=== PATIENT | male | born 1930 | race Caucasian/White ===

== ENCOUNTER 2016-09-07 08:31 | Inpatient (IN) ==
--- NOTE | 2016-09-07 09:15 | Emergency Department Note ---
Arrival - Arrival Chief Complaint: Urogenital - Male Stated Complaint: malfunctioning catheter ED Nursing Triage Note: Pt c/o unable to flush العلي cath since 0300 this am. Pt was seen at [facility] ER this am and sent here. Mode of Arrival: Wheelchair Limitations: No Limitations Source: Patient, Family, RN Notes Reviewed Time Seen by Provider: 09/07/16 08:58 - History of Present Illness HPI Narrative: Patient is an 85-year-old white male who has an appointment see Dr. Perdomo on 09/11/2016. The patient has undergone left heart cath that in [facility] on Sunday, 09/04 and has been unable to void afterwards. The patient had an outcast during his time at [facility] but at the time he was discharged home coud-tip العلي catheter was placed which is 16 Azerbaijani. The patient was discharged home Sunday. During the night the patient had intense suprapubic pain. He has no history of voiding around his catheter. He has had some bloody urine however the patient is on Plavix after his cardiac stent. Patient had 1 small clot noted in the ER here at [facility]. The patient was seen prior to his visit here in the ER at [facility] in [place]. The patient was transferred here as [facility] attempted to irrigate his العلي was 20 cc and they were unable to get this to return. Patient has had 600 cc out recorded at [facility] initially and another 400 recorded at [facility] prior to transfer. Patient had 205 cc out upon arrival here in the emergency department. Allergies/Adverse Reactions: Allergies Allergy/AdvReac Type Severity Reaction Status Date / Time Sulfa (Sulfonamide Allergy Unknown/Unable Verified 08/11/14 22:50 Antibiotics) to obtain tamsulosin [From Flomax] Allergy RASH Verified 09/07/16 08:36 Home Medications: Home Medications Medication Instructions Recorded Confirmed Type Alfuzosin [Uroxatral] 10 mg PO QAM 08/11/14 07/10/16 History Aspirin EC Tab 325 mg PO QAM 08/11/14 07/10/16 History Fluticasone 50 Mcg Nasal [place] 1 spray BOTH NARES DAILY PRN 08/11/14 07/10/16 History [Flonase] Sodium Bicarbonate 650 mg PO 0600,1200,1800 08/11/14 07/10/16 History Docusate Sodium Cap [Colace Cap] 100 mg PO QPM PRN 01/28/15 07/10/16 History LORazepam TAB [Ativan Tab] 1 mg PO BEDTIME PRN 01/28/15 07/10/16 History Polyethylene Glycol Powder 17 gm PO BEDTIME PRN 01/28/15 07/10/16 History [Miralax] amLODIPine [Norvasc] 10 mg PO 1200 01/28/15 07/10/16 History Losartan [Cozaar] 50 mg PO QAM 05/24/16 07/10/16 History [place]-3 Fatty Acids [Fish Oil] 300 mg PO QAM 05/24/16 07/10/16 History Atorvastatin [Lipitor] 10 mg PO BEDTIME 05/31/16 07/10/16 History Esomeprazole Magnesium [Nexium] 1 tablet PO DAILY 05/31/16 07/10/16 History Apixaban [Eliquis] 5 mg PO BID #60 tablet 06/07/16 07/10/16 Rx Diltiazem Cd Cap [Cardizem CD] 120 mg PO BID #60 capsule 06/07/16 07/10/16 Rx Ciprofloxacin Tab [Cipro Tab] 500 mg PO Q12HR #20 tablet 07/10/16 Rx HYDROcodone/ACETAMIN 10-325 [D[place]er 1 tablet PO Q6H PRN #20 tablet 07/10/16 Rx 10-325] metroNIDAZOLE [Metronidazole] 500 mg PO TID #30 tablet 07/10/16 Rx Levofloxacin Tab [Levaquin Tab] 500 mg PO DAILY #7 tablet 09/07/16 Rx Phenazopyridine HCl [Pyridium] 200 mg PO TID #30 tablet 09/07/16 Rx Medical,Surgical,& Family Hx - Medical History Cardio: History of: Aneurysm (left iliac artery), CAD (Patient had coronary artery bypass graft 2004), Hypertension Neurology: No history of: Seizures Rheumatology: History of;: Gout Genitourinary: History of: Prostate Problems Gastrointestinal: History of: Diverticulitis/ Diverticulosis (since 2004), GERD Musculoskeletal: History of: Degenerative Disk Disease Other: History of: Miscellaneous Medical Problems (She had difficulty with hyponatremia) No history of: Cancer - Surgical History Cardiac Surgeries: Sugical HX of: Cardiac Surgery (triple bypass in 2004) Thoracic Surgeries: Patient denies;: Organ Transplant HEENT Surgeries: Patient denies: Eye Surgery Abdominal Surgeries: Patient denies: Abdominal Surgery - Family History Family History: Reports;: Family Cancer (grandmother leukemia), Family Hypertension (father) Comment Only: Family Heart Disease (father heart attack) - Social History Smoking Status: Never smoker Exam Vital Signs: Vital Signs Temperature 97.0 F L 09/07/16 08:34 Pulse Rate 94 H 09/07/16 08:34 Respiratory Rate 18 09/07/16 08:34 Blood Pressure 147/50 09/07/16 08:34 O2 Sat by Pulse Oximetry 96 09/07/16 08:34 GENERAL: This is a well-nourished well-developed white male in no apparent distress. VITAL SIGNS: Reviewed HEENT: Head is atraumatic and normocephalic. Pupils are equal round react to light. Extraocular movements are intact. Oropharynx is benign with moist mucous membranes. NECK: Neck is soft and supple without tenderness. There are no masses. There is no lymphadenopathy. LUNGS: Lungs are clear to auscultation. Chest rises symmetrically. There is no chest wall tenderness. CV: Heart is regular rate and rhythm without murmurs rubs or gallops. ABDOMEN: Abdomen is soft, nontender to palpation. There are no abdominal abnormal masses palpated. There is no organomegaly. Bowel sounds are present and active. SKIN: Skin is warm and dry. No rash. EXTREMITIES: Patient has full range of motion without tenderness. There is no pedal edema. Neuro: Awake alert and oriented 4. Cranial nerves II 12 grossly intact. Motor is 5/5 in all extremities both extensors and flexors. Course Course Narrative: 20 Azerbaijani العلي catheter was placed as directed by Dr. Champagne. Patient now has gross hematuria even after irrigation. - Consultations Consultation #1: Discussed with Dr. Montrell Champagne. He desires patient have a 20 Azerbaijani العلي. Time: 09:16 Disposition Clinical Impression: Urinary retention, Status post PCI Case discussed with: patient Disposition: Still a Patient Condition: Stable Additional Instructions: Patient will continue العلي and leg bag until being seen by Dr. Perdomo next Sunday on 09/11. The patient may return to the emergency department any problems prior to that time. Pyridium 200 mg 3 times daily as needed. Patient is to continue Avodart. Prescriptions: Levofloxacin Tab [Levaquin Tab] 500 mg PO DAILY #7 tablet Phenazopyridine HCl [Pyridium] 200 mg PO TID #30 tablet New Prescriptions: Rx's Medication Instructions Recorded Levofloxacin Tab [Levaquin Tab] 500 mg PO DAILY #7 tablet 09/07/16 Phenazopyridine HCl [Pyridium] 200 mg PO TID #30 tablet 09/07/16 Time of Disposition: 09:17
[2016-09-07] MEDS ORDERED: LIDOCAINE 2% VISCOUS 100 ML BOTTLE ONE (09:43)
[2016-09-07 10:34] LABS: Apearance,Urine CLEAR (Clear); Bilirubin,Urine Negative (Negative); Blood, Urine Large mg/dL (Negative); Glucose,Urine (UA) Negative (Negative); Ketones,Urine Negative (Negative); Nitrite,Urine Negative (Negative); Protein,Urine 100 MG/DL; RBC,Urine 25 /HPF (0-4); Urine Color Red (Yellow); Urine Specific Gravity 1.002 (1.001-1.035); Urine Urobilinogen < 2.0 EU/DL (0.2-1.0); WBC,Urine 4 /HPF (0-6)
[2016-09-07 12:24] LABS: Albumin 3.3 G/DL (3.4-5.0); Calcium 8.3 MG/DL (8.5-10.1); Osmolality,Calculated 262.8 MOS/KG (273-304); Potassium 4.4 MMOL/L (3.5-5.1); Total Protein 5.6 G/DL (6.4-8.3)
[2016-09-07] MEDS ORDERED: ONDANSETRON 4 MG/2 ML VIAL IV PRN (13:37)
[2016-09-07] MEDS ORDERED: PROMETHAZINE 25 MG/1 ML VIAL IM PRN (13:37)
[2016-09-07] MEDS ORDERED: ACETAMINOPHEN 325 MG TABLET PO PRN (13:37)
[2016-09-07 14:28] LABS: Basophils % 0.2 % (0.0-0.8); Eosinophils # 0.1 10*3/uL (0.0-0.87); Hematocrit 27.4 VOL% (42.0-52.0); Hemoglobin 9.7 GM/DL (14.0-18.0); Immature Granulocytes % 0.2 %; Immature Granulocytes Absolute 0.01 #; Lymphocytes # 0.4 10*3/uL (1.4-4.0); Lymphocytes % 8.6 % (21.2-54.2); Mean Corpuscular HGB Conc 35.4 GM/DL (32-36); Mean Corpuscular Hemoglobin 31 PG (27-34); Mean Corpuscular Volume 88.1 FL (87-102); Mean Platelet Volume 10.4 FL (9.6-12.0); Monocytes # 0.6 10*3/uL (0.11-0.8); Monocytes % 13.3 % (1.7-12.7); Neutrophils # 3.5 10*3/uL (1.4-7.4); Neutrophils % 74.7 % (38.7-73.9); Platelet Count 65 T/CUMM (130-400); Red Blood Count 3.11 MC/CUMM (3.8-5.5); Red Cell Distribution Width 14.3 % (9.3-17.3); White Blood Count 4.7 T/CUMM (4-12)
[2016-09-07] MEDS ORDERED: MAGNESIUM HYDROXIDE SUSP 30 ML UDCUP PO PRN (15:06)
[2016-09-07 16:20] LABS: Platelet Estimate Decreased
[2016-09-07] MEDS: CLOPIDOGREL 75 MG TABLET PO SCH (17:16)
[2016-09-07] MEDS ORDERED: POLYETHYLENE GLYCOL POWDER 17 GM PACK PO PRN (18:24)
[2016-09-07] MEDS ORDERED: BACLOFEN 10 MG TABLET PO PRN (18:24)
[2016-09-07] MEDS ORDERED: FLUTICASONE 50 MCG NASAL SPRAY 16 GM BOTTLE BOTH NARES PRN (18:24)
--- NOTE | 2016-09-07 18:31 | Urology History & Physical ---
Assessment and Plan - Time spent with patient Time spent with patient: Less than 30 minutes (1) BPH associated with nocturia Status: Acute Current Visit: Yes (2) Gross hematuria Status: Acute Assessment and plan: We will have the nurses irrigate. We will continue his Uroxatrol and Avodart. This is going to unfortunately take quite some time. If he becomes anemic and his blood count is low then he will need a transfusion. Current Visit: Yes 12 point system: reviewed and no additional remarkable complaints except as stated History of Present Illness Chief complaint: Gross hematuria History of present illness: Mr. Arzola is a 85 year old male who had a percutaneous interventional cardiology procedure done Sunday at [facility] [place]. Apparently had a heart valve placed in a stent. He had difficulty voiding had a العلي catheter placed as developed gross hematuria. He was seen in the emergency room and the try to get him clear but he continue to bleed. He has been on Plavix. Because of the stent he can stop the Plavix was admitted. We switched out the 16-20 Malian العلي catheter nurses will have to irrigated. We will hold his aspirin. I am admitting the patient because Dr. Perdomo is out of town. Home Medications Medication Instructions Recorded Confirmed Type Alfuzosin [Uroxatral] 10 mg PO QAM 08/11/14 09/07/16 History Fluticasone 50 Mcg Nasal [place] 1 spray BOTH NARES DAILY PRN 08/11/14 09/07/16 History [Flonase] Sodium Bicarbonate 650 mg PO 0600,1200,1800 08/11/14 09/07/16 History Docusate Sodium Cap [Colace Cap] 100 mg PO QPM PRN 01/28/15 09/07/16 History LORazepam TAB [Ativan Tab] 1 mg PO BEDTIME PRN 01/28/15 09/07/16 History Polyethylene Glycol Powder 17 gm PO BEDTIME PRN 01/28/15 09/07/16 History [Miralax] Losartan [Cozaar] 50 mg PO QAM 05/24/16 09/07/16 History [place]-3 Fatty Acids [Fish Oil] 300 mg PO QAM 05/24/16 09/07/16 History Atorvastatin [Lipitor] 10 mg PO BEDTIME 05/31/16 09/07/16 History Esomeprazole Magnesium [Nexium] 1 tablet PO DAILY 05/31/16 09/07/16 History Aspirin Chew Tab 81 mg PO DAILY 09/07/16 09/07/16 History Baclofen 10 mg PO QPM PRN 09/07/16 09/07/16 History Clopidogrel [Plavix] 75 mg PO QAM 09/07/16 09/07/16 History Diltiazem Cd Cap [Cardizem CD] 120 mg PO QAM 09/07/16 09/07/16 History Diltiazem Tab [Cardizem Tab] 120 mg PO QAM 09/07/16 09/07/16 History Dutasteride [Avodart] 0.5 mg PO QPM 09/07/16 09/07/16 History Allergies Allergy/AdvReac Type Severity Reaction Status Date / Time Sulfa (Sulfonamide Allergy Unknown/Unable Verified 08/11/14 22:50 Antibiotics) to obtain tamsulosin [From Flomax] Allergy RASH Verified 09/07/16 08:36 Medical,Surgical,& Family Hx - Medical History Cardio: History of: Aneurysm (left iliac artery, abdominal aortic aneurysm), Cerebrovascular Disease, CAD (Patient had coronary artery bypass graft 2004), Hypertension, Cardiovascular Problems (recent aortic valve replacement, and stents) Neurology: No history of: Seizures Rheumatology: History of;: Gout Genitourinary: History of: Bladder Problem (العلي inserted 09/06/16), Prostate Problems Gastrointestinal: History of: Diverticulitis/ Diverticulosis (since 2004), GERD Musculoskeletal: History of: Degenerative Disk Disease Other: History of: Miscellaneous Medical Problems (She had difficulty with hyponatremia) No history of: Cancer - Surgical History Cardiac Surgeries: Sugical HX of: Cardiac Surgery (triple bypass in 2004) Thoracic Surgeries: Patient denies;: Organ Transplant HEENT Surgeries: Patient denies: Eye Surgery Abdominal Surgeries: Patient denies: Abdominal Surgery - Family History Family History: Reports;: Family Cancer (grandmother leukemia), Family Hypertension (father) Comment Only: Family Heart Disease (father heart attack) - Social History Smoking Status: Never smoker Frequency of Alcohol Use: None Type of Drug Use: None Exam - Constitutional Vitals: Period Temp Pulse Resp BP Sys/Armendariz Pulse Ox Last 24 Hr 97 F-98.1 F 84-98 16-18 111-147/50-80 93-99 - Respiratory Respiratory exam: Present: clear to auscultation bilaterally - Cardiovascular Cardiovascular exam: Present: regular rate and rhythm, tachycardia - GI/Abdominal GI/Abdominal exam: Present: normal bowel sounds, tenderness (Suprapubic), soft - Genitourinary Genitourinary: scrotum without lesions, cysts, edema or rash, penis with no lesions or discharge, diffusely enlarged prostate without tenderness Results - Labs CBC & BMP: 09/07/16 14:15 09/07/16 11:35
[2016-09-07] MEDS: SODIUM CHLORIDE 0.9% 1,000 ML IV SCH (18:47)
[2016-09-07] MEDS: ATORVASTATIN 10 MG TABLET PO SCH (22:11)
[2016-09-07] MEDS: DILTIAZEM CD 120 MG CAPSULE PO SCH (22:11)
[2016-09-07] MEDS: DUTASTERIDE 0.5 MG CAPSULE PO SCH (22:11)
[2016-09-08] MEDS: SODIUM BICARBONATE 650 MG TABLET PO SCH ×3 (05:37→18:03)
[2016-09-08 06:05] LABS: Basophils % 0.4 % (0.0-0.8); Eosinophils # 0.2 10*3/uL (0.0-0.87); Eosinophils % 3.8 % (0.00-10.9); Hematocrit 28.2 VOL% (42.0-52.0); Hemoglobin 9.8 GM/DL (14.0-18.0); Immature Granulocytes % 0.4 %; Immature Granulocytes Absolute 0.02 #; Lymphocytes # 0.4 10*3/uL (1.4-4.0); Mean Corpuscular HGB Conc 34.8 GM/DL (32-36); Mean Corpuscular Hemoglobin 31 PG (27-34); Mean Corpuscular Volume 89.8 FL (87-102); Monocytes # 0.7 10*3/uL (0.11-0.8); Monocytes % 12.3 % (1.7-12.7); Neutrophils # 4.3 10*3/uL (1.4-7.4); Neutrophils % 76.1 % (38.7-73.9); Red Blood Count 3.14 MC/CUMM (3.8-5.5); Red Cell Distribution Width 14.4 % (9.3-17.3); White Blood Count 5.6 T/CUMM (4-12)
[2016-09-08 06:08] LABS: Platelet Count 70 T/CUMM (130-400)
[2016-09-08 06:32] LABS: Band Neutrophils 1 % (0-10); Calcium 7.8 MG/DL (8.5-10.1); Eosinophils 4 % (0-10); Hypochromasia 1+; Lymphocytes 3 % (20-55); Osmolality,Calculated 265.5 MOS/KG (273-304); Ovalocytes Slight; Platelet Estimate Decreased; Potassium 4.2 MMOL/L (3.5-5.1); Segmented Neutrophils 83 % (50-85); Total Cells Counted 100
[2016-09-08] MEDS ORDERED: SIMETHICONE CHEW 125 MG TABLET PO PRN (07:05)
[2016-09-08] MEDS: SODIUM CHLORIDE 0.9% 1,000 ML IV SCH ×2 (07:24→20:45)
[2016-09-08] MEDS: ALFUZOSIN 10 MG TABLET PO SCH (08:48)
[2016-09-08] MEDS: PANTOPRAZOLE 40 MG TABLET PO SCH (08:48)
[2016-09-08] MEDS: DILTIAZEM CD 120 MG CAPSULE PO SCH ×2 (08:48→20:44)
[2016-09-08] MEDS: OMEGA 3 ACID ETHYL ESTERS 1 GM CAPSULE PO SCH (08:48)
[2016-09-08] MEDS: CLOPIDOGREL 75 MG TABLET PO SCH ×2 (08:48→08:58)
--- NOTE | 2016-09-08 08:48 | EKG Report ---
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
--- NOTE | 2016-09-08 08:49 | Urology Progress Note ---
Assessment and Plan (1) BPH associated with nocturia Status: Acute Current Visit: Yes (2) Gross hematuria Status: Acute Assessment and plan: We will have the nurses irrigate. We will continue his Uroxatrol and Avodart. This is going to unfortunately take quite some time. If he becomes anemic and his blood count is low then he will need a transfusion. Current Visit: Yes Urology - PN: Subj Interval history: Patient had a stable night. His hematuria looks like it is beginning to clear. He is having minimal pain. He is not having any chest pain. His H&H is stable at 9 and 28. So right now I do not feel like we need to transfuse him. His sodium is up to 132. I will leave all his other cardiac meds and blood pressure medicines to Dr. Gottlieb and Dr. Mera. I am off this weekend the on- call neurologist will see him and then Dr. Perdomo should pick him up on Sunday morning. I will transfer his service to Dr. Perdomo service now. I will be available the rest of this morning if need be. Exam - Constitutional Vitals: Period Temp Pulse Resp BP Sys/Armendariz Pulse Ox Last 24 Hr 97 F-98.9 F 82-98 16-20 111-147/50-80 93-99 Results - Labs CBC & BMP: 09/08/16 05:04 09/08/16 05:04
[2016-09-08] MEDS ORDERED: DILTIAZEM CD 120 MG CAPSULE PO SCH (09:00)
[2016-09-08] MEDS ORDERED: CLOPIDOGREL 75 MG TABLET PO SCH (09:00)
--- NOTE | 2016-09-08 10:40 | Cardiology Consult Note ---
Minh Nugent Vanessa, RN, am scribing for, and in the presence of, Marino Mera MD 10:40. Assessment and Plan - Time spent with patient Time spent with patient: Greater than 30 minutes (Due to assessment, planning, documentation, medication review) (1) CAD (coronary artery disease) Status: Acute Assessment and plan: Appears stable at this time Current Visit: Yes (2) CAD (coronary artery disease) of artery bypass graft Status: Acute Assessment and plan: He is status post stent placement to previously placed bypass graft one week ago. Currently, we do not have these records available. We are attempting to obtain these records from [facility] at this time. Plavix is continued. Current Visit: Yes (3) Status post transcatheter aortic valve replacement (TAVR) using bioprosthesis Status: Acute Current Visit: Yes (4) Gross hematuria Status: Acute Current Visit: Yes (5) Atrial fibrillation Status: Acute Assessment and plan: Obtaining EKG formal review. 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 BRADY CARDIOLOGY CONSULT NOTE: Mr. Arzola is a 85 year old white male with risk factors significant for: Age, hypertension, dyslipidemia, known CAD, and he has never smoked. Past medical history includes CVA, carotid artery stenosis, atrial fibrillation. Patient is status post TAVR on Sunday, September [address] [facility] [place] in [facility]. He also underwent left heart catheterization, and family reports he had a stent placed in 1 of his previously placed bypass grafts. Post cardiac cath, patient had difficulty making urine and required coud-tip العلي catheter placement. Patient was discharged home on September 05, and developed severe suprapubic pain with hematuria overnight. He presented to [facility] ER in [place], and they attempted to irrigate the العلي catheter but were unable to get return. He was transferred to [facility] ER for further evaluation, and he did have a small clot noted with irrigation. He has been admitted to [facility] floor with gross hematuria per urology services. Patient is currently taking Plavix due to recent stent placement, and Plavix cannot be held at this time. Aspirin is on hold however. Patient seen and examined. He is awake and alert this morning. He is having some mild suprapubic discomfort, but at this time he contributes this to gas for which he has received medicine recently for. He is not experiencing any chest pain or shortness of breath. العلي catheter with hematuria noted, and he and family member at bedside reports that it appears to be improved somewhat this morning. Afebrile, SBP 120-145 mmHg. EKG ordered for review. Urine appears to be clearing a little. We will continue close observation and following his counts. He does have a bare-metal stent which will allow us to stop the Plavix earlier although a month would be the recommendation for the earliest time for us to be able to stop it safely if possible. We will continue following. CC: Montrell Champagne MD - Home Medications and Allergies Home Medications: Home Medications Medication Instructions Recorded Confirmed Type Alfuzosin [Uroxatral] 10 mg PO QAM 08/11/14 09/07/16 History Fluticasone 50 Mcg Nasal [place] 1 spray BOTH NARES DAILY PRN 08/11/14 09/07/16 History [Flonase] Sodium Bicarbonate 650 mg PO 0600,1200,1800 08/11/14 09/07/16 History Docusate Sodium Cap [Colace Cap] 100 mg PO QPM PRN 01/28/15 09/07/16 History LORazepam TAB [Ativan Tab] 1 mg PO BEDTIME PRN 01/28/15 09/07/16 History Polyethylene Glycol Powder 17 gm PO BEDTIME PRN 01/28/15 09/07/16 History [Miralax] Losartan [Cozaar] 50 mg PO QAM 05/24/16 09/07/16 History [place]-3 Fatty Acids [Fish Oil] 300 mg PO QAM 05/24/16 09/07/16 History Atorvastatin [Lipitor] 10 mg PO BEDTIME 05/31/16 09/07/16 History Esomeprazole Magnesium [Nexium] 1 tablet PO DAILY 05/31/16 09/07/16 History Aspirin Chew Tab 81 mg PO DAILY 09/07/16 09/07/16 History Baclofen 10 mg PO QPM PRN 09/07/16 09/07/16 History Clopidogrel [Plavix] 75 mg PO QAM 09/07/16 09/07/16 History Diltiazem Cd Cap [Cardizem CD] 120 mg PO BID 09/07/16 09/07/16 History Dutasteride [Avodart] 0.5 mg PO QPM 09/07/16 09/07/16 History Allergies/Adverse Reactions: Allergies Allergy/AdvReac Type Severity Reaction Status Date / Time Sulfa (Sulfonamide Allergy Unknown/Unable Verified 08/11/14 22:50 Antibiotics) to obtain tamsulosin [From Flomax] Allergy RASH Verified 09/07/16 08:36 - Constitutional Constitutional: Present: as per HPI - EENT Eyes: Present: as per HPI Ears: Present: as per HPI Nose, mouth and throat: Present: as per HPI - Cardiovascular Cardiovascular: Present: as per HPI - Respiratory Respiratory: Present: as per HPI - Gastrointestinal Gastrointestinal: Present: as per HPI - Genitourinary Genitourinary: Present: as per HPI - Musculoskeletal Musculoskeletal: Present: as per HPI - Neurological Neurological: Present: as per HPI - Psychiatric Psychiatric: Present: as per HPI - Endocrine Endocrine: Present: as per HPI - Hematologic/Lymphatic Hematologic/Lymphatic: Present: as per HPI Medical,Surgical,& Family Hx - Medical History Cardio: History of: Aneurysm (left iliac artery, abdominal aortic aneurysm), Cerebrovascular Disease, CAD (Patient had coronary artery bypass graft 2004), Hypertension, Cardiovascular Problems (recent aortic valve replacement, and stents) Neurology: No history of: Seizures Rheumatology: History of;: Gout Genitourinary: History of: Bladder Problem (العلي inserted 09/06/16), Prostate Problems Gastrointestinal: History of: Diverticulitis/ Diverticulosis (since 2004), GERD Musculoskeletal: History of: Degenerative Disk Disease Other: History of: Miscellaneous Medical Problems (She had difficulty with hyponatremia) No history of: Cancer - Surgical History Cardiac Surgeries: Sugical HX of: Cardiac Surgery (triple bypass in 2004) Thoracic Surgeries: Patient denies;: Organ Transplant HEENT Surgeries: Patient denies: Eye Surgery Abdominal Surgeries: Patient denies: Abdominal Surgery - Family History Family History: Reports;: Family Cancer (grandmother leukemia), Family Hypertension (father) Comment Only: Family Heart Disease (father heart attack) - Social History Smoking Status: Never smoker Frequency of Alcohol Use: None Type of Drug Use: None Physical Examination Vital Signs Temp Pulse Resp BP Pulse Ox 97.0 F L 94 H 18 147/50 96 09/07/16 08:34 09/07/16 08:34 09/07/16 08:34 09/07/16 08:34 09/07/16 08:34 General: Present: No Apparent Distress HEENT: Present: PERRL, Mucus Membranes Moist Neck: Present: Supple Neck, Midline Trachea, No JVD/HJR Cardiac: Present: Audible Murmur, Tachycardia. Absent: Bradycardia Lungs: Present: Normal Exam, Clear Ascult./Percussion, No Wheeze, Rales, Rhonchi. Absent: Oxygen Neuro: Present: Grossly Intact. Absent: Numbness, Tingling, Weakness, Resting Tremor, Essential Tremor Abdomen: Present: Soft, Active Bowel Sounds, No Masses. Absent: Tender, Firm Skin: Present: Bruising (bilateral groin areas with semi soft hematoma/ ecchymotic bruising to left groin. ). Absent: Rash, Suspicious Lesions Extremities: Present: No Clubbing, No Cyanosis, No Edema, Normal Upper Extr. Pulses (3+ bilaterally), Normal Lower Extr. Pulses (2+ bilaterally), Capillary Refill (Normal) Result/EKG - Labs CBC & BMP: 09/08/16 05:04 09/08/16 05:04 Lab Results: I have reviewed the past 24 hour labs Labs: Laboratory Results - last 24 hr 09/07/16 09/07/16 09/07/16 10:20 11:35 11:35 WBC RBC Hgb Hct MCV MCH MCHC RDW Plt Count MPV Neut % (Auto) Lymph % (Auto) Kings % (Auto) Eos % (Auto) Baso % (Auto) Neut # (Auto) Lymph # (Auto) Kings # (Auto) Eos # (Auto) Baso # (Auto) Total Counted Immature Gran % Nucleated RBC % Immature Gran # Segmented Neutrophils Band Neutrophils Lymphocytes Monocytes Eosinophils Nucleated RBCs # Platelet Estimate Hypochromasia Ovalocytes Morphology Comment Sodium 130 L Potassium 4.4 Chloride 98 Carbon Dioxide 23 Anion Gap 13.4 BUN 18 Creatinine 1.20 GFR Calculation 67 BUN/Creatinine Ratio 15.00 Glucose 110 H Calculated Osmolality 262.8 L Calcium 8.3 L Total Bilirubin 1.40 AST 68 H ALT 34 Alkaline Phosphatase 113 Total Protein 5.6 L Albumin 3.3 L Globulin 2.3 Albumin/Globulin Ratio 1.4 Urine Color Red Urine Appearance Clear Urine pH 8.0 Ur Specific Hardy 1.002 Urine Protein 100 Urine Glucose (UA) Negative Urine Ketones Negative Urine Blood Large Urine Nitrate Negative Urine Bilirubin Negative Urine Urobilinogen < 2.0 H Urine Leukocytes Negative Urine RBC 25 Urine WBC 4 Ur Culture Indicated? Ordered separately Blood Type A POSITIVE Antibody Screen Negative 09/07/16 09/08/16 09/08/16 14:15 05:04 05:04 WBC 4.7 5.6 RBC 3.11 L 3.14 L Hgb 9.7 L 9.8 L Hct 27.4 L 28.2 L MCV 88.1 89.8 MCH 31 31 MCHC 35.4 34.8 RDW 14.3 14.4 Plt Count 65 L 70 L MPV 10.4 11.0 Neut % (Auto) 74.7 H 76.1 H Lymph % (Auto) 8.6 L 7.0 L Kings % (Auto) 13.3 H 12.3 Eos % (Auto) 3.0 3.8 Baso % (Auto) 0.2 0.4 Neut # (Auto) 3.5 4.3 Lymph # (Auto) 0.4 L 0.4 L Kings # (Auto) 0.6 0.7 Eos # (Auto) 0.1 0.2 Baso # (Auto) 0.0 0.0 Total Counted 100 Immature Gran % 0.2 0.4 Nucleated RBC % 0.0 0.0 Immature Gran # 0.01 0.02 Segmented Neutrophils 83 Band Neutrophils 1 Lymphocytes 3 L Monocytes 9 Eosinophils 4 Nucleated RBCs # 0.00 0.00 Platelet Estimate Decreased Decreased Hypochromasia 1+ Ovalocytes Slight Morphology Comment Sodium 132 L Potassium 4.2 Chloride 99 Carbon Dioxide 24 Anion Gap 13.2 BUN 18 Creatinine 1.20 GFR Calculation 67 BUN/Creatinine Ratio 15.00 Glucose 100 Calculated Osmolality 265.5 L Calcium 7.8 L Total Bilirubin AST ALT Alkaline Phosphatase Total Protein Albumin Globulin Albumin/Globulin Ratio Urine Color Urine Appearance Urine pH Ur Specific Hardy Urine Protein Urine Glucose (UA) Urine Ketones Urine Blood Urine Nitrate Urine Bilirubin Urine Urobilinogen Urine Leukocytes Urine RBC Urine WBC Ur Culture Indicated? Blood Type Antibody Screen - EKG EKG results: interpreted by me Ede Nugent Wesley, MD, personally performed the services described in this documentation, ascribed by Regi Wilkinson RN in my presence, and it is both accurate and complete .
[2016-09-08 11:57] LABS: Bilirubin,Total 1.4 MG/DL (0.2-1.0)
--- NOTE | 2016-09-08 12:51 | Family Practice History&Phys ---
Assessment and Plan (1) gross hematuria Status: Acute Assessment and plan: Have held the aspirin will continue to irrigate and Dr. Champagne is managing this. Because of his recent stent placement will need to continue on Plavix. Current Visit: Yes (2) Urinary retention Status: Acute Assessment and plan: Stable medications and catheter Current Visit: Yes (3) Status post transcatheter aortic valve replacement (TAVR) using bioprosthesis Status: Acute Assessment and plan: Stable on present medication Current Visit: Yes (4) coronary artery disease recent stent Status: Acute Assessment and plan: Had stent placed on 09/04/16 presently on Plavix Current Visit: Yes (5) CAD (coronary artery disease) of artery bypass graft Status: Chronic Assessment and plan: Stable at present Current Visit: Yes (6) Atrial fibrillation Status: Chronic Assessment and plan: Stable at present Current Visit: No (7) Hyponatremia Status: Chronic Assessment and plan: This has been chronic in nature. We will correct with IV fluids during hospitalization Current Visit: No (8) cerebrovascular disease Status: Chronic Assessment and plan: Stable at present Current Visit: No History of Present Illness Chief complaint: gross hematuria History of present illness: Mr. Arzola is a 85 year old male Patient is a 85-year-old white male well known to me who had a transcatheter aortic valve replacement and stent placement on September 04 at [facility], [place] in [place], [facility] the procedure was successful and he was discharged on aspirin and Plavix. He apparently had urinary retention following the procedure and a العلي catheter was placed. He subsequently developed significant bladder pain at home and was seen in the emergency room. He was noted to have gross hematuria. Attempt was made to irrigate the bladder but was not successful in stopping the hematuria. Patient will need to stay on the Plavix for at least a month following stent placement. This obviously complicates the hematuria. In view of history patient was admitted to Dr. Champagne for treatment. I was asked to see patient in medical consultation. Also being followed by cardiology. He is generally stable otherwise. Home Medications Medication Instructions Recorded Confirmed Type Alfuzosin [Uroxatral] 10 mg PO QAM 08/11/14 09/07/16 History Fluticasone 50 Mcg Nasal [place] 1 spray BOTH NARES DAILY PRN 08/11/14 09/07/16 History [Flonase] Sodium Bicarbonate 650 mg PO 0600,1200,1800 08/11/14 09/07/16 History Docusate Sodium Cap [Colace Cap] 100 mg PO QPM PRN 01/28/15 09/07/16 History LORazepam TAB [Ativan Tab] 1 mg PO BEDTIME PRN 01/28/15 09/07/16 History Polyethylene Glycol Powder 17 gm PO BEDTIME PRN 01/28/15 09/07/16 History [Miralax] Losartan [Cozaar] 50 mg PO QAM 05/24/16 09/07/16 History [place]-3 Fatty Acids [Fish Oil] 300 mg PO QAM 05/24/16 09/07/16 History Atorvastatin [Lipitor] 10 mg PO BEDTIME 05/31/16 09/07/16 History Esomeprazole Magnesium [Nexium] 1 tablet PO DAILY 05/31/16 09/07/16 History Aspirin Chew Tab 81 mg PO DAILY 09/07/16 09/07/16 History Baclofen 10 mg PO QPM PRN 09/07/16 09/07/16 History Clopidogrel [Plavix] 75 mg PO QAM 09/07/16 09/07/16 History Diltiazem Cd Cap [Cardizem CD] 120 mg PO BID 09/07/16 09/07/16 History Dutasteride [Avodart] 0.5 mg PO QPM 09/07/16 09/07/16 History Allergies Allergy/AdvReac Type Severity Reaction Status Date / Time Sulfa (Sulfonamide Allergy Unknown/Unable Verified 08/11/14 22:50 Antibiotics) to obtain tamsulosin [From Flomax] Allergy RASH Verified 09/07/16 08:36 Medical,Surgical,& Family Hx - Medical History Cardio: History of: Aneurysm (left iliac artery, abdominal aortic aneurysm), Cerebrovascular Disease, CAD (Patient had coronary artery bypass graft 2004), Hypertension, Cardiovascular Problems (recent aortic valve replacement, and stents) Neurology: No history of: Seizures Rheumatology: History of;: Gout Genitourinary: History of: Bladder Problem (العلي inserted 09/06/16), Prostate Problems Gastrointestinal: History of: Diverticulitis/ Diverticulosis (since 2004), GERD Musculoskeletal: History of: Degenerative Disk Disease Other: History of: Miscellaneous Medical Problems (She had difficulty with hyponatremia) No history of: Cancer - Surgical History Cardiac Surgeries: Sugical HX of: Cardiac Surgery (triple bypass in 2004) Thoracic Surgeries: Patient denies;: Organ Transplant HEENT Surgeries: Patient denies: Eye Surgery Abdominal Surgeries: Patient denies: Abdominal Surgery - Family History Family History: Reports;: Family Cancer (grandmother leukemia), Family Hypertension (father) Comment Only: Family Heart Disease (father heart attack) - Social History Smoking Status: Never smoker Frequency of Alcohol Use: None Type of Drug Use: None Marital Status: Lives With:: Spouse Functional capacity: independent ambulation Exam - Constitutional Vitals: Period Temp Pulse Resp BP Sys/Armendariz Pulse Ox Last 24 Hr 97.5 F-98.9 F 68-93 18-20 111-146/57-78 93-98 General appearance: no acute distress - Head Head exam: Present: normal inspection - Eye Pupils: Present: RICHY - ENT ENT exam: Present: normal exam - Respiratory Respiratory exam: Present: clear to auscultation bilaterally - Cardiovascular Cardiovascular exam: Present: regular rate and rhythm - GI/Abdominal GI/Abdominal exam: Present: normal bowel sounds, soft - Extremities Exam Extremities exam: Present: normal inspection - Back Exam Back exam: Present: normal inspection - Neurological Exam Neurological exam: Present: alert, oriented X3 - Psychiatric Psychiatric exam: Present: normal affect - Skin Skin exam: Present: normal color Results - Labs CBC & BMP: 09/08/16 05:04 09/08/16 05:04
[2016-09-08] MEDS: DUTASTERIDE 0.5 MG CAPSULE PO SCH (20:44)
[2016-09-08] MEDS: ATORVASTATIN 10 MG TABLET PO SCH (20:45)
[2016-09-08] MEDS: LORazepam 1 MG TABLET PO PRN (22:25)
[2016-09-09 04:49] LABS: Basophils % 0.2 % (0.0-0.8); Eosinophils # 0.3 10*3/uL (0.0-0.87); Eosinophils % 6.1 % (0.00-10.9); Hematocrit 23.8 VOL% (42.0-52.0); Hemoglobin 8.2 GM/DL (14.0-18.0); Immature Granulocytes % 0.5 %; Immature Granulocytes Absolute 0.02 #; Lymphocytes # 0.5 10*3/uL (1.4-4.0); Mean Corpuscular HGB Conc 34.5 GM/DL (32-36); Mean Corpuscular Hemoglobin 31 PG (27-34); Mean Corpuscular Volume 90.8 FL (87-102); Mean Platelet Volume 10.9 FL (9.6-12.0); Monocytes # 0.6 10*3/uL (0.11-0.8); Monocytes % 14.3 % (1.7-12.7); Neutrophils % 66.9 % (38.7-73.9); Platelet Count 56 T/CUMM (130-400); Red Blood Count 2.62 MC/CUMM (3.8-5.5); Red Cell Distribution Width 14.5 % (9.3-17.3); White Blood Count 4.4 T/CUMM (4-12)
[2016-09-09 05:17] LABS: Calcium 7.8 MG/DL (8.5-10.1); Magnesium 2.1 MG/DL (1.8-2.4); Osmolality,Calculated 267.4 MOS/KG (273-304); Potassium 4.3 MMOL/L (3.5-5.1)
[2016-09-09 05:18] LABS: Calcium 7.5 MG/DL (8.5-10.1); Osmolality,Calculated 263.7 MOS/KG (273-304); Potassium 4.2 MMOL/L (3.5-5.1)
[2016-09-09] MEDS: SODIUM BICARBONATE 650 MG TABLET PO SCH ×3 (05:38→18:10)
[2016-09-09 06:43] LABS: Band Neutrophils 10 % (0-10); Eosinophils 4 % (0-10); Lymphocytes 9 % (20-55); Metamyelocytes 1 %; Myelocytes 2 %; Segmented Neutrophils 74 % (50-85)
[2016-09-09 06:44] LABS: Platelet Estimate Decreased; Total Cells Counted 100
--- NOTE | 2016-09-09 08:23 | Cardiology Progress Note ---
Assessment and Plan (1) CAD (coronary artery disease) Status: Acute Assessment and plan: Appears stable at this time Current Visit: Yes (2) CAD (coronary artery disease) of artery bypass graft Status: Chronic Assessment and plan: He is status post stent placement to previously placed bypass graft one week ago. Currently, we do not have these records available. We are attempting to obtain these records from [facility] at this time. Plavix is continued. Current Visit: Yes (3) Status post transcatheter aortic valve replacement (TAVR) using bioprosthesis Status: Acute Current Visit: Yes (4) Gross hematuria Status: Acute Assessment and plan: Patient is significantly is anemic today. We are going to transfuse him hold his Plavix. Current Visit: Yes (5) Atrial fibrillation Status: Chronic Assessment and plan: Obtaining EKG formal review. Current Visit: No Cardiology - PN: Subj Interval history: 85-year-old man who had a single-vessel stenting done of the marginal graft and transcatheter aortic valve replacement on the [place] roughly a week ago. He received a bare-metal stent to his graft because of risk of bleeding and he has had significant bladder bleeding and now has dropped his crit from 28-23. I am going to transfuse him today and hold his Plavix. His platelet count is down as well and I am not certain as to the etiology of that. We will continue watching that as well. I will transfuse him with 2 units of blood Exam (Progress Note) - Constitutional Vitals: Period Temp Pulse Resp BP Sys/Armendariz Pulse Ox Last 24 Hr 97.3 F-98.9 F 57-80 16-20 104-120/46-70 94-100 Exam: General:no acute distress. alert and oriented, mood and affect are normal HEENT: no new lesions, sclerae are clear, mouth and pharynx benign. Oropharynx is pale Neck: supple, trachea midline, no JVD noted Lungs: no rales ronchi or wheeze is noted. pt comfortable without accesory muscle use to assist with breathing CV: RRR no murmur rub or gallop is noted. Abd: soft and nontender, BSNA, no masses. Ext: no cyanosis, clubbing or edema Neuro: grossly intact without focal neurologic deficit. Result/EKG - Labs CBC & BMP: 09/09/16 04:19 09/09/16 04:19 Labs: Laboratory Results - last 24 hr 09/07/16 09/09/16 09/09/16 11:35 04:19 04:19 WBC 4.4 RBC 2.62 L Hgb 8.2 L Hct 23.8 L MCV 90.8 MCH 31 MCHC 34.5 RDW 14.5 Plt Count 56 L MPV 10.9 Neut % (Auto) 66.9 Lymph % (Auto) 12.0 L [place] % (Auto) 14.3 H Eos % (Auto) 6.1 Baso % (Auto) 0.2 Neut # (Auto) 3.0 Lymph # (Auto) 0.5 L [place] # (Auto) 0.6 Eos # (Auto) 0.3 Baso # (Auto) 0.0 Total Counted 100 Immature Gran % 0.5 Nucleated RBC % 0.0 Immature Gran # 0.02 Segmented Neutrophils 74 Band Neutrophils 10 Lymphocytes 9 L Eosinophils 4 Metamyelocytes 1 Myelocytes 2 Nucleated RBCs # 0.00 Platelet Estimate Decreased Sodium 133 L Potassium 4.3 Chloride 100 Carbon Dioxide 23 Anion Gap 14.3 BUN 17 Creatinine 1.20 GFR Calculation 67 BUN/Creatinine Ratio 14.00 Glucose 101 Calculated Osmolality 267.4 L Calcium 7.8 L Magnesium 2.1 Total Bilirubin 1.40 H 09/09/16 04:19 WBC RBC Hgb Hct MCV MCH MCHC RDW Plt Count MPV Neut % (Auto) Lymph % (Auto) [place] % (Auto) Eos % (Auto) Baso % (Auto) Neut # (Auto) Lymph # (Auto) [place] # (Auto) Eos # (Auto) Baso # (Auto) Total Counted Immature Gran % Nucleated RBC % Immature Gran # Segmented Neutrophils Band Neutrophils Lymphocytes Eosinophils Metamyelocytes Myelocytes Nucleated RBCs # Platelet Estimate Sodium 131 L Potassium 4.2 Chloride 99 Carbon Dioxide 24 Anion Gap 12.2 BUN 17 Creatinine 1.20 GFR Calculation 67 BUN/Creatinine Ratio 14.00 Glucose 100 Calculated Osmolality 263.7 L Calcium 7.5 L Magnesium Total Bilirubin
[2016-09-09] MEDS: OMEGA 3 ACID ETHYL ESTERS 1 GM CAPSULE PO SCH (09:01)
[2016-09-09] MEDS: PANTOPRAZOLE 40 MG TABLET PO SCH (09:01)
[2016-09-09] MEDS: ALFUZOSIN 10 MG TABLET PO SCH (09:01)
[2016-09-09] MEDS: DILTIAZEM CD 120 MG CAPSULE PO SCH ×2 (09:01→20:48)
[2016-09-09] MEDS ORDERED: SODIUM CHLORIDE 0.9% 250 ML IV PRN (09:50)
[2016-09-09] MEDS: SODIUM CHLORIDE 0.9% 1,000 ML IV SCH ×2 (10:49→18:11)
--- NOTE | 2016-09-09 12:27 | Urology Progress Note ---
Urology - PN: Subj Interval history: S: Plavix has been held, hematuria has now resolved Transfusion in progress 2' Hct drop O VSS Abd soft العلي in place - pink lemonade urine in bag, but tubing with yellow urine , 2 way العلي in place Hct 27 --> 28 --> 24 A: Gross Hematuria AUR s/p cardiac intervention P: Plan discussed with Dr Champagne Con't العلي for now - no attempt to remove for now, until certain hematuria is gone Con't uroxatral and avodart Plan CT WO iv contrast - ensure no obvious upper tract cause; hold IV contrast given recent contrast for CV intervention Exam - Constitutional Vitals: Period Temp Pulse Resp BP Sys/Armendariz Pulse Ox Last 24 Hr 97.3 F-99.0 F 50-80 16-20 86-120/45-70 95-100 Results - Labs CBC & BMP: 09/09/16 04:19 09/09/16 04:19
--- NOTE | 2016-09-09 15:18 | CT Report ---
CT of the abdomen and pelvis without intravenous contrast. Axial images were obtained with sagittal and coronal reconstructions. No oral contrast. Indication: Hematuria. Comparison: July 10, 2016. The heart is enlarged. Areas of scarring and hypoaeration are present at the lung bases. A hiatal hernia is present. The liver is normal in size and density. The gallbladder is contracted. No biliary ductal dilatation is seen. There is no splenic enlargement. There is no adrenal enlargement. There is no pancreatic enlargement. There is a fluid collection seen along the left inguinal canal, with indistinct margins. This could represent hemorrhage or abscess. The urinary bladder has an elongated contour. A Lock catheter is in place. The prostate gland is normal in size. There is mild right renal cortical atrophy. No hydronephrosis or nephrolithiasis on the right. The right ureter is normal in course and caliber. The left kidney demonstrates a very prominent extrarenal pelvis which has been present previously. There is moderate cortical thinning. No ureteral calculi are noted. The urinary bladder is elongated, possibly related to bladder outlet obstruction or neurogenic bladder. There is air in the urinary bladder. There is a Lock catheter in place. Prostate gland is normal in size. A hiatal hernia is present. The loops of small intestine are not significantly dilated. The colon is not dilated. There is no evidence of bowel obstruction. Throughout the length of the colon, diverticula are present. There is a small umbilical hernia containing only fat. There is a stent present within the abdominal aorta, beginning above the renal arteries. It extends into the iliac arteries, where double stents are present, similar to the previous exam. Along the left iliac chain, there is indistinctness of the vasculature, and stranding in the facets. There is air in the soft tissues at the left inguinal canal as well as ill-defined fluid. On the contralateral side, similar area of ill-defined fluid is also present. The osseous structures are severely demineralized. Degenerative changes are noted within the lumbar spine. Impression: 1. Within the left groin, there is a fluid collection and stranding in the adjacent fat, this abnormal fluid and stranding extends along the iliac chain into the pelvis. A small amount of fluid collection is also seen in the right groin. These findings are new compared to the July 21 exam and are likely related to recent catheterization with either hematoma or infection. Clinical correlation recommended. 2. Diverticulosis. 3. Bilateral stents. 4. Hypoaeration and scarring at the lung bases. 5. Prominent stable extrarenal pelvis on the left. No hydronephrosis. No nephrolithiasis or ureteral calculi. 6. Elongated urinary bladder, likely due to bladder outlet obstruction or neurogenic bladder. The CT exam was performed using one or more of the following dose reduction techniques: Automated exposure control, adjustment of the mA and/or kV according to patient size, or use of iterative reconstruction technique. PROCEDURE INTERPRETED AT [facility] DEPARTMENT OF RADIOLOGY Final Report Signed by: Dr. Aruna Garcia
--- NOTE | 2016-09-09 17:32 | Family Practice Progress Note ---
Family Practice - PN: Subj Interval history: Patient states that he generally is doing well. He is receiving transfusion at present due to a decrease in hemoglobin and hematocrit. He denies any new complaints. His urine is actually clear at the time of my evaluation no hematuria noted. His other labs are stable except for a slight decrease in his sodium at 131 which is chronic in nature. Patient has had a chronic hyponatremia and this is been evaluated thoroughly. Hopefully hematuria has stopped. His physical exam is otherwise stable. We will continue present treatment plan Exam (Progress Note) - Constitutional Vitals: Period Temp Pulse Resp BP Sys/Armendariz Pulse Ox Last 24 Hr 97.3 F-99.0 F 50-80 16-20 86-120/44-70 95-100 Results - Labs CBC & BMP: 09/09/16 04:19 09/09/16 04:19 Assessment and Plan (1) gross hematuria Status: Acute Assessment and plan: Have held the aspirin will continue to irrigate and Dr. Champagne is managing this. Because of his recent stent placement will need to continue on Plavix. Current Visit: Yes (2) Urinary retention Status: Acute Assessment and plan: Stable medications and catheter Current Visit: Yes (3) Status post transcatheter aortic valve replacement (TAVR) using bioprosthesis Status: Acute Assessment and plan: Stable on present medication Current Visit: Yes (4) coronary artery disease recent stent Status: Acute Assessment and plan: Had stent placed on 09/04/16 presently on Plavix Current Visit: Yes (5) CAD (coronary artery disease) of artery bypass graft Status: Chronic Assessment and plan: Stable at present Current Visit: Yes (6) Atrial fibrillation Status: Chronic Assessment and plan: Stable at present Current Visit: No (7) Hyponatremia Status: Chronic Assessment and plan: This has been chronic in nature. We will correct with IV fluids during hospitalization Current Visit: No (8) cerebrovascular disease Status: Chronic Assessment and plan: Stable at present Current Visit: No
[2016-09-09] MEDS: DUTASTERIDE 0.5 MG CAPSULE PO SCH (20:47)
[2016-09-09] MEDS: ATORVASTATIN 10 MG TABLET PO SCH (20:48)
[2016-09-10] MEDS: SODIUM CHLORIDE 0.9% 1,000 ML IV SCH ×2 (00:37→05:29)
[2016-09-10] MEDS: SODIUM BICARBONATE 650 MG TABLET PO SCH ×3 (05:28→18:23)
[2016-09-10 05:43] LABS: Calcium 8.2 MG/DL (8.5-10.1)
[2016-09-10 05:44] LABS: Magnesium 2.1 MG/DL (1.8-2.4); Osmolality,Calculated 271.1 MOS/KG (273-304); Potassium 4.1 MMOL/L (3.5-5.1)
[2016-09-10 06:33] LABS: Basophils % 0.5 % (0.0-0.8); Eosinophils # 0.3 10*3/uL (0.0-0.87); Eosinophils % 7.5 % (0.00-10.9); Hematocrit 29.7 VOL% (42.0-52.0); Hemoglobin 10.5 GM/DL (14.0-18.0); Immature Granulocytes % 0.9 %; Immature Granulocytes Absolute 0.04 #; Lymphocytes # 0.5 10*3/uL (1.4-4.0); Lymphocytes % 10.3 % (21.2-54.2); Mean Corpuscular HGB Conc 35.4 GM/DL (32-36); Mean Corpuscular Hemoglobin 32 PG (27-34); Mean Corpuscular Volume 89.2 FL (87-102); Mean Platelet Volume 10.6 FL (9.6-12.0); Monocytes # 0.6 10*3/uL (0.11-0.8); Monocytes % 13.7 % (1.7-12.7); Neutrophils % 67.1 % (38.7-73.9); Platelet Count 57 T/CUMM (130-400); Red Blood Count 3.33 MC/CUMM (3.8-5.5); Red Cell Distribution Width 14.5 % (9.3-17.3); White Blood Count 4.4 T/CUMM (4-12)
[2016-09-10 07:45] LABS: Hypochromasia 2+
[2016-09-10] MEDS: ALFUZOSIN 10 MG TABLET PO SCH (08:47)
[2016-09-10] MEDS: DILTIAZEM CD 120 MG CAPSULE PO SCH ×2 (08:47→22:40)
[2016-09-10] MEDS: PANTOPRAZOLE 40 MG TABLET PO SCH (08:47)
[2016-09-10] MEDS: OMEGA 3 ACID ETHYL ESTERS 1 GM CAPSULE PO SCH (08:47)
--- NOTE | 2016-09-10 10:53 | Cardiology Progress Note ---
Assessment and Plan (1) CAD (coronary artery disease) Status: Acute Assessment and plan: Appears stable at this time Current Visit: Yes (2) CAD (coronary artery disease) of artery bypass graft Status: Chronic Assessment and plan: He is status post stent placement to previously placed bypass graft one week ago. Currently, we do not have these records available. We are attempting to obtain these records from [facility] at this time. Plavix is continued. Current Visit: Yes (3) Status post transcatheter aortic valve replacement (TAVR) using bioprosthesis Status: Acute Current Visit: Yes (4) Gross hematuria Status: Acute Assessment and plan: Patient is significantly is anemic today. We are going to transfuse him hold his Plavix. 09/10: Hematuria has resolved off of the Plavix. I will see if we can consider restarting in the next several days. Current Visit: Yes (5) Atrial fibrillation Status: Chronic Assessment and plan: Obtaining EKG formal review. Current Visit: No (6) Thrombocytopenia Status: Acute Assessment and plan: He has a low platelet count of purpuric rash of his lower extremities and I will ask hematology to review Current Visit: Yes Cardiology - PN: Subj Interval history: Mr. Cantrell has had good response to the transfusion. His counts were up to 29% hematocrit. His platelet count has been low and it is improved off of Plavix. It does make me a little concerned that he could have something like TTP and he does have a macular rash of his lower extremities that is suspicious I think for purpura although can ask the hand scudder to review. His hematuria has resolved off of the Plavix. Hopefully we can resume it in the next several days. Exam (Progress Note) - Constitutional Vitals: Period Temp Pulse Resp BP Sys/Armendariz Pulse Ox Last 24 Hr 97 F-99.9 F 50-78 16-20 86-144/44-76 95-99 Exam: General:no acute distress. alert and oriented, mood and affect are normal HEENT: no new lesions, sclerae are clear, mouth and pharynx benign. Oropharynx is pale Neck: supple, trachea midline, no JVD noted Lungs: no rales ronchi or wheeze is noted. pt comfortable without accesory muscle use to assist with breathing CV: RRR no murmur rub or gallop is noted. Abd: soft and nontender, BSNA, no masses. Ext: no cyanosis, clubbing or edema Neuro: grossly intact without focal neurologic deficit. Result/EKG - Labs CBC & BMP: 09/10/16 06:20 09/10/16 04:40 Labs: Laboratory Results - last 24 hr 09/09/16 09/09/16 09/10/16 09:50 10:24 04:40 WBC RBC Hgb Hct MCV MCH MCHC RDW Plt Count MPV Neut % (Auto) Lymph % (Auto) [place] % (Auto) Eos % (Auto) Baso % (Auto) Neut # (Auto) Lymph # (Auto) [place] # (Auto) Eos # (Auto) Baso # (Auto) Immature Gran % Nucleated RBC % Immature Gran # Nucleated RBCs # Hypochromasia Sodium 135 L Potassium 4.1 Chloride 103 Carbon Dioxide 22 Anion Gap 14.1 BUN 17 Creatinine 1.30 GFR Calculation 61 BUN/Creatinine Ratio 13.00 Glucose 97 POC Glucose 129 H Calculated Osmolality 271.1 L Calcium 8.2 L Magnesium 2.1 Blood Type Cancelled Antibody Screen Cancelled Crossmatch See Detail Blood Bank Comment Cancelled 09/10/16 06:20 WBC 4.4 RBC 3.33 L D Hgb 10.5 L D Hct 29.7 L MCV 89.2 MCH 32 MCHC 35.4 RDW 14.5 Plt Count 57 L MPV 10.6 Neut % (Auto) 67.1 Lymph % (Auto) 10.3 L [place] % (Auto) 13.7 H Eos % (Auto) 7.5 Baso % (Auto) 0.5 Neut # (Auto) 3.0 Lymph # (Auto) 0.5 L [place] # (Auto) 0.6 Eos # (Auto) 0.3 Baso # (Auto) 0.0 Immature Gran % 0.9 Nucleated RBC % 0.0 Immature Gran # 0.04 Nucleated RBCs # 0.00 Hypochromasia 2+ Sodium Potassium Chloride Carbon Dioxide Anion Gap BUN Creatinine GFR Calculation BUN/Creatinine Ratio Glucose POC Glucose Calculated Osmolality Calcium Magnesium Blood Type Antibody Screen Crossmatch Blood Bank Comment
--- NOTE | 2016-09-10 11:35 | Oncology Consult Note ---
Assessment and Plan (1) Thrombocytopenia Status: Acute Assessment and plan: etiology unclear - chronic since 05/2016 with worsening at this admission - worsening may be related to increased consumption with recent procedure and possible medications given during prior admission - stable since admission here - if continued bleeding recommend keeping platelets > 50,000 and if platelets given checking a 1 hour post transfusion platelet count to ensure appropriate response - manual diff without platelet clumping nor schistocytes - consider changing alfuzosin to flomax as alfuzosin rarely associated with thrombocytopenia - no signs of sepsis, no known heparin - will check LDH, hapto, retic, ferritin, iron sat, folate, vitamin b12, PT, PTT , fibrinogen, HIV, hepatitis panel thank you for consult, will continue to follow Current Visit: Yes History of Present Illness Chief complaint: thrombocytopenia History of present illness: Mr. Arzola is a 85 year old male with PMHx of afbi, CVA, CAD s/p CABG and a TAVR as well coronary artery stent placed at [facility] in [place] on 09/04/16 presented to [place] for hematuria. With patients admission to [facility] he had urinary retention and thus was discharge with a العلي in place. Since admission in [place] his plavix has been held with resolution of his hematuria. Historically patient is on elequis for his afib which was held once plavix was started. Patients platelets on admission were 65. Reviewing prior records patient has had thrombocytopenia since atleast 05/2016 with no labs prior until 2014 at which time they were normal. Family unaware of platelet count at [facility]. No history of bleeding up until this admission. He has bilateral groin hematomas from his groin access of recent procedure. No other recent change in medications. No history of blood disorder. No b symptoms. Weight stable. Home Medications Medication Instructions Recorded Confirmed Type Alfuzosin [Uroxatral] 10 mg PO QAM 08/11/14 09/07/16 History Fluticasone 50 Mcg Nasal [place] 1 spray BOTH NARES DAILY PRN 08/11/14 09/07/16 History [Flonase] Sodium Bicarbonate 650 mg PO 0600,1200,1800 08/11/14 09/07/16 History Docusate Sodium Cap [Colace Cap] 100 mg PO QPM PRN 01/28/15 09/07/16 History LORazepam TAB [Ativan Tab] 1 mg PO BEDTIME PRN 01/28/15 09/07/16 History Polyethylene Glycol Powder 17 gm PO BEDTIME PRN 01/28/15 09/07/16 History [Miralax] Losartan [Cozaar] 50 mg PO QAM 05/24/16 09/07/16 History [place]-3 Fatty Acids [Fish Oil] 300 mg PO QAM 05/24/16 09/07/16 History Atorvastatin [Lipitor] 10 mg PO BEDTIME 05/31/16 09/07/16 History Esomeprazole Magnesium [Nexium] 1 tablet PO DAILY 05/31/16 09/07/16 History Aspirin Chew Tab 81 mg PO DAILY 09/07/16 09/07/16 History Baclofen 10 mg PO QPM PRN 09/07/16 09/07/16 History Clopidogrel [Plavix] 75 mg PO QAM 09/07/16 09/07/16 History Diltiazem Cd Cap [Cardizem CD] 120 mg PO BID 09/07/16 09/07/16 History Dutasteride [Avodart] 0.5 mg PO QPM 09/07/16 09/07/16 History Allergies Allergy/AdvReac Type Severity Reaction Status Date / Time Sulfa (Sulfonamide Allergy Unknown/Unable Verified 08/11/14 22:50 Antibiotics) to obtain tamsulosin [From Flomax] Allergy RASH Verified 09/07/16 08:36 Medical,Surgical,& Family Hx - Medical History Cardio: History of: Aneurysm (left iliac artery, abdominal aortic aneurysm), Cerebrovascular Disease, CAD (Patient had coronary artery bypass graft 2004), Hypertension, Cardiovascular Problems (recent aortic valve replacement, and stents) Neurology: No history of: Seizures Rheumatology: History of;: Gout Genitourinary: History of: Bladder Problem (العلي inserted 09/06/16), Prostate Problems Gastrointestinal: History of: Diverticulitis/ Diverticulosis (since 2004), GERD Musculoskeletal: History of: Degenerative Disk Disease Other: History of: Miscellaneous Medical Problems (She had difficulty with hyponatremia) No history of: Cancer - Surgical History Cardiac Surgeries: Sugical HX of: Cardiac Surgery (triple bypass in 2004) Thoracic Surgeries: Patient denies;: Organ Transplant HEENT Surgeries: Patient denies: Eye Surgery Abdominal Surgeries: Patient denies: Abdominal Surgery - Family History Family History: Reports;: Family Cancer (grandmother leukemia), Family Hypertension (father) Comment Only: Family Heart Disease (father heart attack) - Social History Smoking Status: Never smoker Frequency of Alcohol Use: None Type of Drug Use: None - Constitutional Constitutional: Absent: chills, fatigue, fever(s), night sweats, weakness, weight loss - EENT Eye: Absent: blurry vision Nose, mouth and throat: Absent: dizziness, epistaxis - Cardiovascular Cardiovascular ROS IM: Absent: chest pain, edema, orthopnea - Respiratory Respiratory: Absent: cough, hemoptysis - Gastrointestinal Gastrointestinal: Absent: abdominal pain, constipation, diarrhea, dysphagia, hematemesis, hematochezia, melena, nausea, vomiting - Genitourinary Genitourinary ROS male: Present: hematuria, other (urinary retention with العلي placed). Absent: dysuria - Musculoskeletal Musculoskeletal ROS: Absent: back pain - Neurological Neurological ROS: Absent: abnormal gait, focal weakness - Hematologic/Lymphatic Hematologic/Lymphatic: Present: easy bleeding, easy bruising Exam - Constitutional Vitals: Period Temp Pulse Resp BP Sys/Armendariz Pulse Ox Last 24 Hr 97 F-99.9 F 56-78 16-20 107-144/44-76 95-99 General appearance: no acute distress - Eye Eye Exam: Present: EOMI Pupils: Present: PERRL - Respiratory Respiratory exam: Present: CTAB - Cardiovascular Cardiovascular exam: Present: RRR - GI/Abdominal GI/Abdominal exam: Present: soft, other (bilateral groin bruising ). Absent: ascites, distended, mass, tenderness - Extremities Exam Extremities exam: Absent: edema - Neurological Exam Neurological exam: Present: alert, oriented X3 - Psychiatric Psychiatric exam: Present: normal affect - Skin Skin exam: Present: warm Results - Labs CBC & BMP: 09/10/16 06:20 09/10/16 04:40
[2016-09-10 12:39] LABS: % Iron Saturation 27.4 % (18-50); Ferritin 93.7 ng/ml (26-388); Haptoglobin < 8.0 MG/DL (30-200); Iron 68 UG/DL (65-175); Iron Binding Capacity 248 UG/DL (250-450)
--- NOTE | 2016-09-10 13:10 | Urology Progress Note ---
Urology - PN: Subj Interval history: S: Plavix has been held x 48', hematuria has completely resolved Transfusion yest Pt feels well O VSS Abd soft العلي in place - crystal clear urine in bag; 2 way العلي in place Hct 27 --> 28 --> 24 --> [address] WO contrast (-) renal masses, no stones, prominent (L) extrarenal pelvis noted A: Gross Hematuria AUR s/p cardiac intervention P: Plan discussed with Dr Champagne Con't العلي for now - can D/C tomorrow Con't uroxatral and avodart Trial of void tomorrow will eventually need cystoscopy Exam - Constitutional Vitals: Period Temp Pulse Resp BP Sys/Armendariz Pulse Ox Last 24 Hr 97 F-99.9 F 56-78 16-20 107-144/48-76 95-99 Results - Labs CBC & BMP: 09/10/16 06:20 09/10/16 04:40
[2016-09-10 13:34] LABS: Folate 10.6 NG/ML (5.4-24.0); HIV Antigen/Antibody Result Nonreactive (Nonreactive); Hepatitis A Ab IgM Quant 0.08 Index; Hepatitis A Ab IgM Result Negative (Negative); Hepatitis B Core IgM Quant 0.37 Index; Hepatitis B Core IgM Result Negative (Negative); Hepatitis B Surface Ag Quant 0.37 Index; Hepatitis B Surface Ag Result Negative (Negative); Hepatitis C Virus Ab Quant 0.11 Index; Hepatitis C Virus Ab Result Negative (Negative); Vitamin B12 618 PG/ML (211-911)
--- NOTE | 2016-09-10 14:10 | Family Practice Progress Note ---
Family Practice - PN: Subj Interval history: Patient is generally doing well. Urine has remained clear. Patient denies any new complaints. Hematology evaluated decreased platelets. This is a new problem probably medication induced. He had a slight decreased platelet count only 1 previous admission but has always had normal platelet counts other than this admission. I would assume that his platelets were normal prior to his procedure at [facility]. Not low enough to require any treatment at present. Will monitor. Hopefully can remove Lock soon. Exam (Progress Note) - Constitutional Vitals: Period Temp Pulse Resp BP Sys/Armendariz Pulse Ox Last 24 Hr 97 F-99.9 F 56-78 16-20 107-144/48-76 95-99 Results - Labs CBC & BMP: 09/10/16 06:20 09/10/16 04:40 Assessment and Plan (1) gross hematuria Status: Acute Assessment and plan: Have held the aspirin will continue to irrigate and Dr. Champagne is managing this. Because of his recent stent placement will need to continue on Plavix. Current Visit: Yes (2) Urinary retention Status: Acute Assessment and plan: Stable medications and catheter Current Visit: Yes (3) Status post transcatheter aortic valve replacement (TAVR) using bioprosthesis Status: Acute Assessment and plan: Stable on present medication Current Visit: Yes (4) coronary artery disease recent stent Status: Acute Assessment and plan: Had stent placed on 09/04/16 presently on Plavix Current Visit: Yes (5) CAD (coronary artery disease) of artery bypass graft Status: Chronic Assessment and plan: Stable at present Current Visit: Yes (6) Atrial fibrillation Status: Chronic Assessment and plan: Stable at present Current Visit: No (7) Hyponatremia Status: Chronic Assessment and plan: This has been chronic in nature. We will correct with IV fluids during hospitalization Current Visit: No (8) cerebrovascular disease Status: Chronic Assessment and plan: Stable at present Current Visit: No
[2016-09-10] MEDS: LORazepam 1 MG TABLET PO PRN (22:40)
[2016-09-10] MEDS: DUTASTERIDE 0.5 MG CAPSULE PO SCH (22:40)
[2016-09-10] MEDS: DOCUSATE SODIUM 100 MG CAPSULE PO PRN (22:41)
[2016-09-10] MEDS: ATORVASTATIN 10 MG TABLET PO SCH (22:41)
[2016-09-11] MEDS: SODIUM CHLORIDE 0.9% 1,000 ML IV SCH ×3 (06:05→17:37)
[2016-09-11] MEDS: SODIUM BICARBONATE 650 MG TABLET PO SCH ×3 (06:07→17:37)
[2016-09-11 06:19] LABS: Basophils % 0.2 % (0.0-0.8); Eosinophils # 0.3 10*3/uL (0.0-0.87); Eosinophils % 7.7 % (0.00-10.9); Hematocrit 30.1 VOL% (42.0-52.0); Hemoglobin 10.6 GM/DL (14.0-18.0); Immature Granulocytes % 0.5 %; Immature Granulocytes Absolute 0.02 #; Lymphocytes # 0.4 10*3/uL (1.4-4.0); Lymphocytes % 8.6 % (21.2-54.2); Mean Corpuscular HGB Conc 35.2 GM/DL (32-36); Mean Corpuscular Hemoglobin 32 PG (27-34); Mean Corpuscular Volume 89.6 FL (87-102); Mean Platelet Volume 11.4 FL (9.6-12.0); Monocytes # 0.6 10*3/uL (0.11-0.8); Monocytes % 13.3 % (1.7-12.7); Neutrophils % 69.7 % (38.7-73.9); Red Blood Count 3.36 MC/CUMM (3.8-5.5); Red Cell Distribution Width 14.7 % (9.3-17.3); White Blood Count 4.3 T/CUMM (4-12)
[2016-09-11 06:24] LABS: Platelet Count 68 T/CUMM (130-400)
[2016-09-11 06:42] LABS: Calcium 7.8 MG/DL (8.5-10.1); Magnesium 1.8 MG/DL (1.8-2.4); Osmolality,Calculated 269.1 MOS/KG (273-304); Potassium 3.8 MMOL/L (3.5-5.1)
[2016-09-11 07:16] LABS: Hypochromasia 1+; Ovalocytes Slight; Platelet Estimate Decreased
--- NOTE | 2016-09-11 07:53 | Urology Progress Note ---
Urology - PN: Subj Interval history: The patient's urine is clear. I am going to give him a trial of voiding today Exam - Constitutional Vitals: Period Temp Pulse Resp BP Sys/Armendariz Pulse Ox Last 24 Hr 97.4 F-98.8 F 63-81 18-59 128-152/66-80 94-98 Results - Labs CBC & BMP: 09/11/16 05:27 09/11/16 05:27
[2016-09-11] MEDS: DILTIAZEM CD 120 MG CAPSULE PO SCH ×2 (09:29→21:20)
[2016-09-11] MEDS: PANTOPRAZOLE 40 MG TABLET PO SCH (09:30)
[2016-09-11] MEDS: OMEGA 3 ACID ETHYL ESTERS 1 GM CAPSULE PO SCH (09:30)
[2016-09-11] MEDS: ALFUZOSIN 10 MG TABLET PO SCH (09:30)
--- NOTE | 2016-09-11 16:18 | Family Practice Progress Note ---
Family Practice - PN: Subj Interval history: Patient continues to do well. His urine remains clear today. Dr. Perdomo is beginning voiding trial. Hopefully patient will do well. We will otherwise continue present treatment plan Exam (Progress Note) - Constitutional Vitals: Period Temp Pulse Resp BP Sys/Armendariz Pulse Ox Last 24 Hr 97.4 F-98.2 F 68-81 18-20 128-144/65-80 94-98 Results - Labs CBC & BMP: 09/11/16 05:27 09/11/16 05:27 Assessment and Plan (1) gross hematuria Status: Acute Assessment and plan: Have held the aspirin will continue to irrigate and Dr. Champagne is managing this. Because of his recent stent placement will need to continue on Plavix. Current Visit: Yes (2) Urinary retention Status: Acute Assessment and plan: Stable medications and catheter Current Visit: Yes (3) Status post transcatheter aortic valve replacement (TAVR) using bioprosthesis Status: Acute Assessment and plan: Stable on present medication Current Visit: Yes (4) coronary artery disease recent stent Status: Acute Assessment and plan: Had stent placed on 09/04/16 presently on Plavix Current Visit: Yes (5) CAD (coronary artery disease) of artery bypass graft Status: Chronic Assessment and plan: Stable at present Current Visit: Yes (6) Atrial fibrillation Status: Chronic Assessment and plan: Stable at present Current Visit: No (7) Hyponatremia Status: Chronic Assessment and plan: This has been chronic in nature. We will correct with IV fluids during hospitalization Current Visit: No (8) cerebrovascular disease Status: Chronic Assessment and plan: Stable at present Current Visit: No
--- NOTE | 2016-09-11 17:08 | Cardiology Progress Note ---
Minh Nugent Vanessa, RN, am scribing for, and in the presence of, Hussein Cohen MD 17:08. Assessment and Plan - Time spent with patient Time spent with patient: Greater than 30 minutes (1) CAD (coronary artery disease) Status: Acute Assessment and plan: Appears stable at this time. Clinically no findings for ACS and patient is without complaint. He has had recent coronary stent placed and we need to restart his comparative as soon as possible. Current Visit: Yes (2) CAD (coronary artery disease) of artery bypass graft Status: Chronic Assessment and plan: He is status post stent placement to previously placed bypass graft one week ago. Records have been obtained from [facility] for review. Plavix is now on hold since September 09 due to significant anemia or transfusion. Aspirin also held. Current Visit: Yes (3) Status post transcatheter aortic valve replacement (TAVR) using bioprosthesis Status: Acute Assessment and plan: Stable. Current Visit: Yes (4) Gross hematuria Status: Acute Assessment and plan: This is improved, and urine has been clear for 2 days now. Current Visit: Yes (5) Atrial fibrillation Status: Chronic Assessment and plan: Proximal. EKG reveals sinus rhythm. Current Visit: No Cardiology - PN: Subj Interval history: PRIMARY HOG RIBBER: DR. TROTTER SUMMARY: Mr. Arzola is a 85 year old white male with risk factors significant for: Age, hypertension, dyslipidemia, known CAD, and he has never smoked. Past medical history includes CVA, carotid artery stenosis, paroxysmal atrial fibrillation. Patient is status post TAVR on September 04 at [facility] in [facility]. He also underwent left heart catheterization, and family reports he had a stent placed in 1 of his previously placed bypass grafts. Post cardiac cath, patient had difficulty making urine and required coud-tip Lock catheter placement. Patient was discharged home on September 05, and developed severe suprapubic pain with hematuria overnight. He presented to [facility] in [place], and they attempted to irrigate the Lock catheter but were unable to get return. [facility] for [facility] evaluation, and he did have a small clot noted with irrigation. He has been admitted to [facility] with gross hematuria per urology services. Patient's Plavix was continued initially after admission, but after developing significant anemia on September 09 with H&H 8.2/23.8, he received 2 units PRBCs, and Plavix was held. He is also been noted to have thrombocytopenia since admission. Oncology has also evaluated. August: Since transfusion, hematocrit has been stable with HCT 30.1 today. His urine was clear yesterday afternoon, and Lock catheter was discontinued this morning. Patient is not having any trouble at this time voiding urine, and urine has been clear. Patient is up and ambulating around the room with no trouble. He is having no chest pain or shortness of breath or other overt anginal complaint. Systolic BP 125-140 mmHg. Labs reviewed as above. Potassium 3.8, magnesium 1.8. Creatinine is 1.1 with GFR of 75. PLTs 68,000. Apparently is not having any further hematuria. We need to restart the patient on his clopidogrel as soon as it is felt that is safe to do so. He has had recent stent placement as well as TAVR. He has not had any cardiac symptomatology fortunately thus far is noted. Exam (Progress Note) - Constitutional Vitals: Period Temp Pulse Resp BP Sys/Armendariz Pulse Ox Last 24 Hr 97.4 F-98.8 F 63-81 18-20 128-152/65-80 94-98 Exam: General: Present: No Apparent Distress, pleasant. HEENT: Present: PERRL, Mucus Membranes Moist Neck: Present: Supple Neck, Midline Trachea, No JVD/HJR Cardiac: Present: Audible Murmur systolic 1/6, Tachycardia. Absent: Bradycardia Lungs: Present: Normal Exam, Clear Ascult./Percussion, No Wheeze, Rales, Rhonchi. Absent: Oxygen Neuro: Present: Grossly Intact. Absent: Numbness, Tingling, Weakness, Resting Tremor, Essential Tremor Abdomen: Present: Soft, Active Bowel Sounds, No Masses. Absent: Tender, Firm Skin: Present: Bruising bilateral groin areas. Absent: Rash, Suspicious Lesions Extremities: Present: No Clubbing, No Cyanosis, No Edema, Normal Upper Extr. Pulses (3+ bilaterally), Normal Lower Extr. Pulses (2+ bilaterally), Capillary Refill (Normal) Result/EKG - Labs CBC & BMP: 09/11/16 05:27 09/11/16 05:27 Lab Results: I have reviewed the past 24 hour labs Labs: Laboratory Results - last 24 hr 09/11/16 09/11/16 05:27 05:27 WBC 4.3 RBC 3.36 L Hgb 10.6 L Hct 30.1 L MCV 89.6 MCH 32 MCHC 35.2 RDW 14.7 Plt Count 68 L MPV 11.4 Neut % (Auto) 69.7 Lymph % (Auto) 8.6 L [place] % (Auto) 13.3 H Eos % (Auto) 7.7 Baso % (Auto) 0.2 Neut # (Auto) 3.0 Lymph # (Auto) 0.4 L [place] # (Auto) 0.6 Eos # (Auto) 0.3 Baso # (Auto) 0.0 Immature Gran % 0.5 Nucleated RBC % 0.0 Immature Gran # 0.02 Nucleated RBCs # 0.00 Platelet Estimate Decreased Hypochromasia 1+ Ovalocytes Slight Morphology Comment Sodium 135 L Potassium 3.8 Chloride 103 Carbon Dioxide 22 Anion Gap 13.8 BUN 13 Creatinine 1.10 GFR Calculation 75 BUN/Creatinine Ratio 11.00 Glucose 96 Calculated Osmolality 269.1 L Calcium 7.8 L Magnesium 1.8 - Diagnostic Findings Procedure: Chest x-ray: image reviewed by me, report reviewed by me, CT: image reviewed by me, report reviewed by me - EKG EKG results: interpreted by me, no acute changes EKG shows: atrial fibrillation Noel Nugent John Timothy, MD, personally performed the services described in this documentation, ascribed by Regi Wilkinson RN in my presence, and it is both accurate and complete 708 .
[2016-09-11] MEDS: ATORVASTATIN 10 MG TABLET PO SCH (21:20)
[2016-09-11] MEDS: DUTASTERIDE 0.5 MG CAPSULE PO SCH (21:20)
[2016-09-11] MEDS: LORazepam 1 MG TABLET PO PRN (21:21)
[2016-09-12] MEDS: SODIUM BICARBONATE 650 MG TABLET PO SCH (06:43)
[2016-09-12 07:41] VITALS: BP 131/67
--- NOTE | 2016-09-12 07:59 | Urology Progress Note ---
Urology - PN: Subj Interval history: The patient is voiding well his urine remains clear. It is okay with me to resume at anticoaguation. If it is okay with cardiology and with Dr. Gottlieb i will idischarge the patient today. He will go home on Uroxatrol and I am adding Proscar and he can continue his home medication Exam - Constitutional Vitals: Period Temp Pulse Resp BP Sys/Armendariz Pulse Ox Last 24 Hr 97.7 F-98.5 F 57-85 18-20 103-148/61-83 94-98 Results - Labs CBC & BMP: 09/11/16 05:27 09/11/16 05:27
--- NOTE | 2016-09-12 08:02 | Discharge Summary ---
Hospital Course - Hospital Course Hospital Course: This 85-year-old white male with a history of BPH who had been on Uroxatrol had a cardiac catheterization procedure in [place]. The patient was unable to void and had placement of urethral catheter and with anticoagulation after the stent placement and subsequent subsequently developed gross hematuria. The patient was admitted and had a larger Lock catheter put in so that he could be irrigated and his urine gradually cleared. He was previously on Uroxatrol and we added Avodart. He was followed by cardiology and his anticoagulation was temporarily stopped. His urine cleared and the patient was able to void well and his urine remained clear when the Lock was removed. He will be discharged on Uroxatrol and Proscar and it is okay with me for him to resume anticoagulation and all of his home medication. I follow the patient anually in the office and I will continue to same that time unless she requires a closer follow-up appointment Discharge Plan - Discharge Data Disposition: Disch To Home/Self Care Condition at Discharge: Stable Discharge Diet: advance to your usual diet Activity: resume usual activities as tolerated Hygiene: no restrictions Weight Bearing at Discharge: full weight bearing Driving: no restrictions Contact your physician if you experience:: Difficulty voiding, Bleeding - Discharge Medications No Action Alfuzosin [Uroxatral] 10 mg PO QAM Sodium Bicarbonate 650 mg PO 0600,1200,1800 Fluticasone 50 Mcg Nasal [place] [Flonase] 1 spray BOTH NARES DAILY PRN PRN Reason: Dry Nose Polyethylene Glycol Powder [Miralax] 17 gm PO BEDTIME PRN PRN Reason: Constipation Docusate Sodium Cap [Colace Cap] 100 mg PO QPM PRN PRN Reason: Constipation LORazepam TAB [Ativan Tab] 1 mg PO BEDTIME PRN PRN Reason: Sleep [place]-3 Fatty Acids [Fish Oil] 300 mg PO QAM Esomeprazole Magnesium [Nexium] 1 tablet PO DAILY Atorvastatin [Lipitor] 10 mg PO BEDTIME Aspirin Chew Tab 81 mg PO DAILY Dutasteride [Avodart] 0.5 mg PO QPM Diltiazem Cd Cap [Cardizem CD] 120 mg PO BID Losartan [Cozaar] 50 mg PO QAM Clopidogrel [Plavix] 75 mg PO QAM Baclofen 10 mg PO QPM PRN PRN Reason: Leg Cramps - Follow Up or Referral Follow Up: Cash Perdomo MD [Physician] - (Patient should have a previous appointment) - Forms/Instructions Exam - Constitutional Vitals: Period Temp Pulse Resp BP Sys/Armendariz Pulse Ox Last 24 Hr 97.7 F-98.5 F 57-85 18-20 103-148/61-83 94-98 DS: Provider Date of admission: 09/07/16 11:04 Primary care physician: Sheldon Gottlieb DO Attending physician on admission: Cash Perdomo MD Consults: 09/07/16 13:37 Consult to Physician [CONS] Routine Comment: CAD, s/p stent on plavix, hematuria Consulting Provider: Ricky David Person Notified: Lashonda Date Notified: 09/07/16 Time Notified: 14:25 Consult Notification Comment: send it to the team. 09/07/16 18:26 Consult to Physician [CONS] Routine Comment: Cardiac problems, gross hematuria Consulting Provider: Sheldon Gottlieb Consult to Specialist Group: Urology When should Consulting Provider be notified: Now Person Notified: Nelda Date Notified: 09/08/16 Time Notified: 09:11 09/10/16 10:55 Consult to Physician [CONS] Routine Comment: Questionable ttp Consulting Provider: Hussein Reyna Person Notified: JAYY Date Notified: 09/11/16 Time Notified: 08:58 Discharging clinician: Cash Perdomo MD
[2016-09-12] MEDS: SODIUM CHLORIDE 0.9% 1,000 ML IV SCH (08:28)
[2016-09-12] MEDS: OMEGA 3 ACID ETHYL ESTERS 1 GM CAPSULE PO SCH (09:39)
[2016-09-12] MEDS: ALFUZOSIN 10 MG TABLET PO SCH (09:40)
[2016-09-12] MEDS: PANTOPRAZOLE 40 MG TABLET PO SCH (09:40)
[2016-09-12] MEDS: CLOPIDOGREL 75 MG TABLET PO SCH (09:40)
[2016-09-12] MEDS: DOCUSATE SODIUM 100 MG CAPSULE PO PRN (09:40)
[2016-09-12] MEDS: DILTIAZEM CD 120 MG CAPSULE PO SCH (09:42)
== END 2016-09-12 10:30 | disposition home or self-care (01) | DRG 696 ==
LOC: N.ED 08:31 → N.EDINP 11:04 → N.5E 12:13
PROVIDERS: ADMIT Urology; ATTEND Urology